=== PATIENT | female | born 1955 | race Caucasian/White ===

== ENCOUNTER 2023-11-06 17:13 | Emergency (ER) | payer MEDICARE ==
[~2023-11-06] VITALS: Ht 157.5 cm; Wt 90.7 kg
[2023-11-06 17:35] VITALS: O2SAT 100
[2023-11-06 18:06] LABS: BILIRUBIN,URINE NEGATIVE (NEGATIVE); CLARITY,URINE CLEAR (CLEAR); COLOR,URINE YELLOW (YELLOW); GLUCOSE, URINE >=1000 (NEGATIVE); KETONES,URINE NEGATIVE (NEGATIVE); LEUKOCYTE ESTERASE ,URINE NEGATIVE (NEGATIVE); NITRITE,URINE NEGATIVE (NEGATIVE); PH,URINE 5 (5 - 7); PROTEIN,URINE DIPSTICK NEGATIVE (NEGATIVE); URINE UROBILINOGEN 0.2 mg/dL (0.2 - 1)
[2023-11-06 18:22] LABS: BACTERIA,URINE MODERATE /HPF; EPITHELIAL CELLS,URINE MODERATE /LPF; TRANSITIONAL EPI CELLS,URINE FEW; WBC,URINE (MAN) 0-5 /HPF (0-5)
[2023-11-06] MEDS ORDERED: CEFDINIR300 MG PO (18:26)
== END 2023-11-06 18:40 | disposition home or self-care (01) ==
LOC: ER 17:15
DX: R51.9 Headache, unspecified (principal); N39.0 Urinary tract infection, site not specified; I10 Essential (primary) hypertension; E11.9 Type 2 diabetes mellitus without complications
CPT/HCPCS: 81001; 99283

== ENCOUNTER 2025-03-08 14:35 | Inpatient (IN) | payer MEDICARE ==
[~2025-03-08] VITALS: Ht 162.6 cm; Wt 88.5 kg
[2025-03-08] VITALS (7 sets, daily range): BP systolic 107–176; BP diastolic 62–74; PULSE 101–111; RESP 18–21; TEMP 98.8–99.7; O2SAT 94–99
[~2025-03-08 14:35] MED LIST: CEFDINIR300 MG PO
[2025-03-08 15:39] LABS: BASOPHILS # (AUTO) 0.1 (0.0-0.1); BASOPHILS % 0.4 % (0.0-1.0); HEMATOCRIT 41.9 % (34.2-44.1); HEMOGLOBIN 14.4 g/dL (12.0-16.0); LYMPHOCYTES # (AUTO) 1.8 (1.0-3.2); LYMPHOCYTES % 14.5 % (18.0-39.1); MEAN CORPUSCULAR HEMOGLOBIN 28.5 pg (28-32); MEAN CORPUSCULAR HGB CONC 34.4 g/dL (31-35); MEAN CORPUSCULAR VOLUME 82.8 fL (81-99); MONOCYTES # (AUTO) 0.4 (0.2-0.8); MONOCYTES % 3.5 % (4.4-11.3); NEUTROPHILS % 81.1 % (38.7-80.0); PLATELET COUNT 231 x10e3/uL (140-360); RED BLOOD COUNT 5.06 x10e6/uL (3.6-5.1); RED CELL DISTRIBUTION WIDTH 12.6 % (11.7-14.4)
[2025-03-08 15:50] LABS: INR 0.86; PROTHROMBIN TIME 12.3 seconds (11.9-14.5)
[2025-03-08 15:51] LABS: PARTIAL THROMBOPLASTIN TIME 21.8 seconds (23.8-35.5)
[2025-03-08] MEDS: SODIUM CHLORIDE 0.9% 1000ML 1,000 ML IV SCH ×2 (15:57→22:11)
[2025-03-08] MEDS: ONDANSETRON HCL INJ 2MG/ML 2ML 2 MG/ML VIAL IV STA ×2 (15:57→17:15)
[2025-03-08 15:58] LABS: INFLUENZA A AG NEGATIVE (NEGATIVE)
[2025-03-08 15:59] LABS: CORONAVIRUS COVID-19 AG NEGATIVE (NEGATIVE); INFLUENZA B AG NEGATIVE (NEGATIVE)
[2025-03-08 16:00] LABS: ALBUMIN 3.7 g/dL (3.5-5.0); ALBUMIN/GLOBULIN RATIO 1.1 (0.8-2.0); CALCIUM 8.7 mg/dL (8.4-10.2); CREATININE, SERUM 0.85 mg/dL (0.57-1.11); TOTAL PROTEIN 7.1 g/dL (6.5-8.1)
[2025-03-08 16:06] LABS: TROPONIN I 0.007 ng/mL (0-0.300)
[2025-03-08 16:13] LABS: CLARITY,URINE CLEAR (CLEAR); COLOR,URINE YELLOW (YELLOW)
[2025-03-08 16:14] LABS: BILIRUBIN,URINE SMALL (NEGATIVE); GLUCOSE, URINE 500 (NEGATIVE); KETONES,URINE 2+ (NEGATIVE); LEUKOCYTE ESTERASE ,URINE NEGATIVE (NEGATIVE); NITRITE,URINE NEGATIVE (NEGATIVE); PH,URINE 5.5 (5 - 7); PROTEIN,URINE DIPSTICK 2+ (NEGATIVE); URINE UROBILINOGEN 0.2 mg/dL (0.2 - 1)
[2025-03-08 16:18] LABS: RBC,URINE 0-5 /HPF (0-5); WBC,URINE (MAN) 0-5 /HPF (0-5)
[2025-03-08 16:19] LABS: BACTERIA,URINE RARE /HPF; EPITHELIAL CELLS,URINE FEW /LPF; MUCUS,URINE MODERATE
[2025-03-08] MEDS: ACETAMINOPHEN 325 MG TAB PO STA (17:15)
[2025-03-08] MEDS ORDERED: IOPAMIDOL 370 MG/ML 100 ML INFUS..BTL INJ ONE (17:59)
[2025-03-08] MEDS ORDERED: SODIUM CHLORIDE 0.9% 100 ML ONE (17:59)
[2025-03-08] MEDS ORDERED: Morphine 2mg Syringe 2 MG/ML SYR IV PRN (18:45)
[2025-03-08 19:56] LABS: TROPONIN I 0.012 ng/mL (0-0.300)
[2025-03-08] MEDS ORDERED: TRESIBA100 UNIT/1 SC ×2 (22:09)
[2025-03-08] MEDS ORDERED: LISINOPRIL10 MG PO (22:10)
[2025-03-08] MEDS ORDERED: HYDRALAZINE HCL 20 MG/ML VIAL IV PRN (23:00)
[2025-03-08] MEDS: ACETAMINOPHEN 325 MG TAB PO PRN (23:10)
[2025-03-09] VITALS (8 sets, daily range): BP systolic 106–176; BP diastolic 62–74; PULSE 65–105; RESP 16–20; TEMP 97.8–99.4; O2SAT 94–97
[2025-03-09 05:40] LABS: BASOPHILS # (AUTO) 0.1 (0.0-0.1); BASOPHILS % 0.6 % (0.0-1.0); EOSINOPHILS % 0.1 % (0.0-6.0); HEMOGLOBIN 13.2 g/dL (12.0-16.0); LYMPHOCYTES # (AUTO) 2.4 (1.0-3.2); LYMPHOCYTES % 25.5 % (18.0-39.1); MEAN CORPUSCULAR HEMOGLOBIN 28.6 pg (28-32); MEAN CORPUSCULAR VOLUME 86.6 fL (81-99); MONOCYTES # (AUTO) 0.7 (0.2-0.8); MONOCYTES % 7.9 % (4.4-11.3); NEUTROPHILS # (AUTO) 6.1 (2.1-6.9); NEUTROPHILS % 65.4 % (38.7-80.0); PLATELET COUNT 194 x10e3/uL (140-360); RED BLOOD COUNT 4.62 x10e6/uL (3.6-5.1); RED CELL DISTRIBUTION WIDTH 12.9 % (11.7-14.4); WHITE BLOOD COUNT 9.38 x10e3/uL (4.8-10.8)
[2025-03-09 06:21] LABS: ALBUMIN 3.2 g/dL (3.5-5.0); ANION GAP 15.6 mmol/L (8-16); BILIRUBIN,TOTAL 1.2 mg/dL (0.2-1.2); CALCIUM 8.3 mg/dL (8.4-10.2); CREATININE, SERUM 0.88 mg/dL (0.57-1.11); POTASSIUM 3.6 mmol/L (3.5-5.1); TOTAL PROTEIN 6.3 g/dL (6.5-8.1)
[2025-03-09 06:42] LABS: TROPONIN I 0.018 ng/mL (0-0.300)
[2025-03-09] MEDS: ONDANSETRON HCL INJ 2MG/ML 2ML 2 MG/ML VIAL IV PRN (09:32)
[2025-03-09 11:43] LABS: TROPONIN I 0.014 ng/mL (0-0.300)
[2025-03-09] MEDS ORDERED: DEXTROSE 50% SYRINGE 50 ML IV PRN (11:45)
[2025-03-09] MEDS: LISINOPRIL 10 MG TAB PO SCH (13:46)
[2025-03-09] MEDS ORDERED: INSULIN REGULAR, HUMAN 100 UNIT/1 ML SQ SCH (16:30)
== END 2025-03-09 14:11 | disposition home or self-care (01) | DRG 102 ==
LOC: ER 15:13 → ERHOLD 18:40 → MED/SURG 20:26
PROVIDERS: ADMIT Internal Medicine; ATTEND Internal Medicine
DX: G43.909 Migraine, unspecified, not intractable, without status migrainosus (principal); G93.41 Metabolic encephalopathy; G45.9 Transient cerebral ischemic attack, unspecified; R47.01 Aphasia; K52.9 Noninfective gastroenteritis and colitis, unspecified; I10 Essential (primary) hypertension; E11.9 Type 2 diabetes mellitus without complications; R47.81 Slurred speech; Z11.52 Encounter for screening for COVID-19; Z79.4 Long term (current) use of insulin
CPT/HCPCS: 36415; 70450; 70496; 70498; 70551; 71045; 80053; 81001; 82140; 82550; 82948; 83605; 84484; 85025; 85610; 85730; 87040; 87086; 93005; 93306; 94799; 99284; J2405; J7030; J7050; Q9967